=== PATIENT | male | born 1950 | race Caucasian/White ===

== ENCOUNTER 2024-02-03 17:37 | Outpatient (CLI) | payer MEDICARE, BC | END 2024-02-03 23:59 | disposition critical access hospital (66) | LOC: EMS 17:37 | DX: R26.81 Unsteadiness on feet (principal); R27.8 Other lack of coordination | CPT/HCPCS: A0425; A0429 ==

== ENCOUNTER 2024-02-03 17:50 | Emergency (ER) | payer MEDICARE, BC ==
--- NOTE | 2024-02-03 18:06 | ED Physician Documentation ---
PD HPI [facility]OCAL NEURO - Stated complaint Stated Complaint: STROKE SYMPTOMS - Chief complaint Chief Complaint: Neuro - History obtained from History obtained from: Patient - Additional information Additional information: 73-year-old gentleman with history of mild controlled elevated blood pressures, no history of heart problems stroke or other significant comorbidities. Never smoker and no history of arrhythmias presents with strokelike symptoms. He noticed around 9 AM this morning that he had some clumsiness and slight weakness in the right arm and trouble tracking with the right leg. He has had a mild headache for a few days but he associates that with some allergies and sinus symptoms. PD PAST MEDICAL HISTORY - Past Medical History Past Medical History: Yes Cardiovascular: Hypertension - Allergies Allergies/Adverse Reactions: Allergies Allergy/AdvReac Type Severity Reaction Status Date / Time No Known Drug Allergies Allergy Verified 02/03/24 18:05 - Social History Does the pt smoke?: No Smoking Status: Never smoker PD ED PE NORMAL - Vitals Vital signs reviewed: Yes - General General: Alert and oriented X 3, No acute distress - Cardiac Cardiac: RRR, No murmur - Respiratory Respiratory: No respiratory distress, Clear bilaterally - Abdomen Abdomen: Non tender - Neuro Neuro: Alert and oriented X 3 NIHSS - Time Time: 18:02 - Level of Consciousness Level of consciousness: (0) Alert, Keenly responsive LOC Questions: (0) Answers both Q's correct LOC Commands: (0) Performs both correctly - Gaze Best Gaze: (0) Normal - Visual Visual: (0) No loss - Facial Palsy Facial Palsy: (0) Normal, symmetrical movement - Motor Arms (both separate) Motor Arm (right): (1) Drift (Very mild pronation) Motor Arm (left): (0) No drift - Motor Legs (both separate) Motor Leg (right): (0) No drift Motor Leg (left): (0) No drift - Limb Ataxia Limb Ataxia: (0) Absent - Sensory Sensory: (0) Normal - Best Language Best Language: (0) No aphasia - Dysarthria Dysarthria: (0) Normal - Extinction and Inattention (formally neg Extinction and inattention: (0) No abnormality - Total Score/Results Total Score/Result: 1 Results - Vitals Vitals: Vital Signs - 24 hr 02/03/24 17:57 Heart Rate 85 Respiratory 18 Rate Blood Pressure 160/115 H O2 Saturation 97 Oxygen O2 Source Room air - EKG (time done) 1755 EKG releavant findings:: EKG personally interpreted by author of this note. Relevant findings are: Rate: Rate (enter#) (78) Rhythm: NSR [place]: Normal QRS: LVH Ischemia: Normal ST segments, Q waves (inferior) Compare to prior EKG: Old EKG unavailable Computer interpretation: Agree with computer - Labs Labs: Laboratory Tests 02/03/24 02/03/24 02/03/24 17:54 17:54 17:54 WBC 9.7 RBC 4.45 L Hgb 14.1 Hct 40.5 L MCV 91.0 MCH 31.7 H MCHC 34.8 RDW 12.4 Plt Count 309 MPV 8.5 Neut # (Auto) 5.8 Lymph # (Auto) 2.8 Glenn # (Auto) 0.8 Eos # (Auto) 0.3 Baso # (Auto) 0.1 Absolute Nucleated RBC 0.00 Nucleated RBC % 0.0 PT 12.0 INR 1.1 Sodium 130 L Potassium 3.0 L Chloride 96 L Carbon Dioxide 25 Anion Gap 9.0 BUN 13 Creatinine 0.7 Estimated GFR (MDRD) 110 Glucose 97 Calcium 9.7 Total Bilirubin 0.4 AST 16 ALT 12 Alkaline Phosphatase 49 Total Protein 7.3 Albumin 4.5 Globulin 2.8 Albumin/Globulin Ratio 1.6 - Rads (name of study) CT of the head is unremarkable Relevant Findings:: Final report received, EMP independent interpretation of test CT of the head and CT angiography of the head were negative. No high-level stenosis or occlusion. Relevant Findings:: Final report received, EMP independent interpretation of test PD Medical Decision Making - ED course ED course: This is a gentleman who presents with likely a small stroke affecting his right side. He is out of the window for thrombolytics having noticed his symptoms at 9 AM this morning. Workup demonstrates clear CT and CTA of the head, CBC and INR normal. CMP notable for mild hypokalemia and hyponatremia likely due to hydrochlorothiazide use. I discussed options noting that it is too late in the evening to get an MRI on Monday we do not have MRI until Monday. Options offered to the patient were admission till Monday versus transfer to another facility versus home with aspirin and a statin to return on Monday for reevaluation. He opts for the third option but does not want to do statins due to side effects. He does understand this increases his risk of recurrent and/or worse stroke. Departure - Departure Disposition: 01 Home, Self Care Clinical Impression: Cerebrovascular accident (CVA) Qualifiers: CVA mechanism: unspecified Qualified Code(s): I63.9 - Cerebral infarction, unspecified Condition: Good Record reviewed to determine appropriate education?: Yes Instructions: ED Stroke Completed Comments: Take a baby aspirin (81mg) a day until told otherwise. Return Monday for MRI vs talk with your PCP on Monday for further workup. Forms: PCP List
[2024-02-03] MEDS ORDERED: iohexoL-300 100 ML VIAL ONE (18:08)
[2024-02-03 18:12] LABS: BASOPHILS # (AUTO) 0.1 10^3/uL (0.0-0.1); BASOPHILS % (AUTO) 0.5 %; EOSINOPHILS # (AUTO) 0.3 10^3/uL (0.0-0.7); EOSINOPHILS % (AUTO) 2.9 %; HCT - HEMATOCRIT 40.5 % (42.0-52.0); HGB - HEMOGLOBIN 14.1 g/dL (14.0-18.0); LYMPHOCYTES # (AUTO) 2.8 10^3/uL (1.5-3.5); LYMPHOCYTES % (AUTO) 28.4 %; MEAN CORPUSCULAR HEMOGLOBIN 31.7 pg (27.0-31.0); MEAN CORPUSCULAR HGB CONC 34.8 g/dL (32.0-36.0); MEAN PLATELET VOLUME 8.5 fL (7.4-11.4); MONOCYTES # (AUTO) 0.8 10^3/uL (0.0-1.0); MONOCYTES % (AUTO) 8.4 %; NEUTROPHILS # (AUTO) 5.8 10^3/uL (1.5-6.6); NEUTROPHILS % (AUTO) 59.5 %; PLT - PLATELET COUNT 309 10^3/uL (130-450); RED BLOOD COUNT 4.45 10^6/uL (4.70-6.10); RED CELL DISTRIBUTION WIDTH 12.4 % (12.0-15.0); WHITE BLOOD COUNT 9.7 x10^3/uL (4.8-10.8)
[2024-02-03 18:29] LABS: INR 1.1 (0.8-1.2)
[2024-02-03 18:30] LABS: ALBUMIN 4.5 g/dL (3.2-5.5); ALBUMIN/GLOBULIN RATIO 1.6 (1.0-2.2); BILIRUBIN,TOTAL 0.4 mg/dL (0.2-1.0); CALCIUM 9.7 mg/dL (8.5-10.3); CREATININE 0.7 mg/dL (0.6-1.3); TOTAL PROTEIN 7.3 g/dL (6.4-8.9)
[2024-02-03] MEDS: iohexoL-300 100 ML VIAL IVP ONE (18:54)
--- NOTE | 2024-02-03 18:58 | CT Report ---
PROCEDURE: Head WO INDICATIONS: cva sx TECHNIQUE: Noncontrast 4.5 mm thick angled axial sections acquired from the foramen magnum to the vertex. For r adiation dose reduction, the following was used: automated exposure control, adjustment of mA and/or kV according to patient size. COMPARISON: Correlation is made with the accompanying imaging. FINDINGS: Image quality: Excellent. CSF spaces: Basal cisterns are patent. No extra-axial fluid collections. Ventricles are normal in size and shape. Brain: No midline shift. No intracranial masses or hemorrhage. Bravo-white matter interface is norm al. Skull and face: Calvarium and visualized facial bones are intact, without suspicious lesions. Sinuses: Moderate mucosal thickening can be seen within the ethmoid air cells, with milder mucosal th ickening seen elsewhere within the paranasal sinuses. No significant abnormal fluid can be seen withi n the mastoid air cells. IMPRESSION: No intracranial hemorrhage is seen. No significant intracranial abnormality is seen. If there is strong clinical concern for a stroke, please consider a dedicated brain MRI for further e valuation (assuming that there is no contraindication to MRI). Reviewed by: Reji Harp MD on 02/03/2024 5:57 PM NIC Approved by: Reji Harp MD on 02/03/2024 5:57 PM NIC Station ID: [id number]
--- NOTE | 2024-02-03 19:01 | CT Report ---
PROCEDURE: Angio Head/Neck INDICATIONS: cva sx TECHNIQUE: After the administration of intravenous contrast, 1 mm thick sections acquired from the aortic arch t hrough the [place]. 3-dimensional uzddqko-ryzibkadk-renlkcmaeq (MIP) and/or volume renderin g reformats were acquired of the central intracranial vasculature and neck separately. For radiation dose reduction, the following was used: automated exposure control, adjustment of mA and/or kV acco rding to patient size. CONTRAST: 80ml omni 300 COMPARISON: Correlation is made with the accompanying imaging. FINDINGS: Image quality: Limited by bolus timing, with venous contamination. HEAD CT: CSF Spaces: Basal cisterns are patent. No extra-axial fluid collections. Ventricles are normal in size and shape. Brain: No significant abnormality is seen for scanning technique. Skull and face: Calvarium and visualized facial bones appear intact, without suspicious lesions. Sinuses: Visualized sinuses and mastoids are clear. HEAD CT ANGIOGRAPHY: Anterior circulation: Intracranial internal carotid arteries are normal in size and flow. The flow within the paired anterior cerebral arteries is considered to be within normal limits, with the right anterior cerebral artery dominant to the left. The flow within the middle cerebral arteries is norm al and symmetric. The anterior communicating artery is seen. No aneurysms are seen. Posterior circulation: Visualized portions of the vertebral arteries demonstrate normal caliber, and join to form a normal appearing basilar artery. Flow within the posterior cerebral arteries is norm al and symmetric. No aneurysms are seen. NECK CT ANGIOGRAPHY: Carotid system: The great vessels demonstrate a conventional anatomy as they arise from the aortic a rch. The origins of the common carotid arteries appear patent. The common carotid arteries demonstr ate normal caliber and courses. The bifurcation regions are both widely patent. The internal caroti d arteries demonstrate normal calibers. The internal carotid arteries demonstrate moderate tortuosit y. Posterior circulation: The origins of the vertebral arteries both appear widely patent. The more montero perior extracranial portions of both vertebral arteries also demonstrate normal courses and calibers. They join to form a normal appearing basilar artery. Soft tissues: Visualized neck soft tissues demonstrate no suspicious abnormalities. Bones: No suspicious bony lesions. Visualized cervical spine appears normally aligned. At least mo derate cervical spine degenerative change is seen. IMPRESSION: No significant intracranial arterial abnormality is seen. No significant abnormality is seen within the arteries of the neck. Additional findings: Physiologic asymmetry of the anterior cerebral arteries Moderate tortuosity of the internal carotid arteries At least moderate cervical spine degenerative change The estimate of stenosis included in the report of the imaging study was calculated using the NASCET method Reviewed by: Reji Harp MD on 02/03/2024 6:00 PM NIC Approved by: Reji Harp MD on 02/03/2024 6:00 PM NIC Station ID: [id number]
[2024-02-03] MEDS: ASPIRIN CHEW 81 MG TABLET PO STA (19:30)
[2024-02-03 19:41] VITALS: BP 174/94; O2SAT 98
== END 2024-02-03 19:37 | disposition home or self-care (01) ==
LOC: ED 17:50
DX: I63.9 Cerebral infarction, unspecified (principal); R29.701 NIHSS score 1; I10 Essential (primary) hypertension; E87.6 Hypokalemia; E87.1 Hypo-osmolality and hyponatremia
CPT/HCPCS: 36415; 70450; 70496; 70498; 80053; 85025; 85610; 93005; 99284; 99285; A9270; Q9967